=== PATIENT | male | born 1955 | race African-American/Black ===

== ENCOUNTER 2019-12-09 08:46 | Emergency (ER) | payer OTHER ==
[~2019-12-09] VITALS: Ht 180.3 cm; Wt 114.0 kg
--- NOTE | 2019-12-09 09:01 | PHYS DOC ---
Past Medical History Past Medical History: Diabetes-Type II Past Surgical History: Other (partial left foot amputation) Additional Information: nonSmoker Alcohol Use: None Adult General Chief Complaint Chief Complaint: HYPERGLYCEMIA HPI HPI Patient is a 64 year old male with a past history of uncontrolled diabetes pr esents via EMS with hyperglycemia. Per EMS. [place] report patient was altered with slurred speech. Per EMS, blood sugar was 42 patient was given normal saline in route, and recheck blood sugar was 402. Currently in the ED patient reports that he is not having any symptoms and feels good. Denies abdominal pain, nausea, vomiting, diarrhea, changes in vision. He states that he does not remember being symptomatic and does not remember being picked up by EMS. Patient states that she does not take any medication for his diabetes and has not for the past couple of years and does not check his blood sugars at home. Patient states his last hospitalization for his diabetes was multiple years ago. Review of Systems Review of Systems Constitutional: Denies fever or chills Eyes: Denies redness or eye pain HENT: Denies nasal congestion or sore throat Respiratory: Denies cough or shortness of breath Cardiovascular: Denies chest pain or palpitations GI: Denies abdominal pain, nausea, or vomiting : Denies dysuria or hematuria Musculoskeletal: Denies back pain or joint pain Integument: Denies rash or skin lesions Neurologic: Denies headache, focal weakness or sensory changes Complete systems were reviewed and found to be within normal limits, except as documented in this note. Current Medications Current Medications Current Medications Medications (Trade) Dose Ordered Sig/Jackson Start Time Stop Time Status Last Admin Dose Admin Sodium Chloride 1,000 ml @ 1,000 mls/hr 1X ONCE 12/09/19 09:00 12/09/19 09:59 DC 12/09/19 09:45 1,000 MLS/HR Allergies Allergies Allergies Coded Allergies Type Severity Reaction Last Updated Verified No Known Drug Allergies 12/09/19 No Physical Exam Physical Exam Constitutional: Well developed, well nourished, no acute distress, non-toxic appearance HENT: Normocephalic, atraumatic, oropharynx moist Eyes: PERRL, EOMI, conjunctiva normal, no discharge Neck: Normal range of motion, no tenderness, supple Cardiovascular: Heart rate normal, regular rhythm Lungs & Thorax: Bilateral breath sounds clear to auscultation, no wheezing Abdomen: Soft, no tenderness Skin: Warm, dry, no erythema, no rash Back: No tenderness, no CVA tenderness Extremities: No tenderness, ROM intact, no edema Neurologic: Alert and oriented X 3, normal motor function, normal sensory fun ction, no focal deficits noted Psychologic: Affect normal, judgement normal, mood normal Current Patient Data Vital Signs Vital Signs Date Time Temp Pulse Resp B/P (MAP) Pulse Ox O2 Delivery O2 Flow Rate FiO2 12/09/19 10:25 84 185/90 (121) 100 Room Air 12/09/19 08:46 97.4 17 97.4 Lab Values Laboratory Tests Test 12/09/19 09:45 12/09/19 10:00 White Blood Count 6.2 x10^3/uL (4.0-11.0) Red Blood Count 4.80 x10^6/uL (4.30-5.70) Hemoglobin 12.0 g/dL (13.0-17.5) L Hematocrit 36.9 % (39.0-53.0) L Mean Corpuscular Volume 77 fL (79-100) L Mean Corpuscular Hemoglobin 25 pg (25-35) Mean Corpuscular Hemoglobin Concent 32 g/dL (31-37) Red Cell Distribution Width 15.3 % (11.5-14.5) H Platelet Count 197 x10^3/uL (140-400) Neutrophils (%) (Auto) 70 % (31-73) Lymphocytes (%) (Auto) 21 % (24-48) L Monocytes (%) (Auto) 7 % (0-9) Eosinophils (%) (Auto) 2 % (0-3) Basophils (%) (Auto) 1 % (0-3) Neutrophils # (Auto) 4.3 x10^3/uL (1.8-7.7) Lymphocytes # (Auto) 1.3 x10^3/uL (1.0-4.8) Monocytes # (Auto) 0.4 x10^3/uL (0.0-1.1) Eosinophils # (Auto) 0.1 x10^3/uL (0.0-0.7) Basophils # (Auto) 0.1 x10^3/uL (0.0-0.2) Sodium Level 138 mmol/L (136-145) Potassium Level 4.5 mmol/L (3.5-5.1) Chloride Level 104 mmol/L (98-107) Carbon Dioxide Level 23 mmol/L (21-32) Anion Gap 11 (6-14) Blood Urea Nitrogen 50 mg/dL (8-26) H Creatinine 3.6 mg/dL (0.7-1.3) H Estimated GFR (Cockcroft-Gault) 17.2 BUN/Creatinine Ratio 14 (6-20) Glucose Level 304 mg/dL (70-99) H Calcium Level 8.6 mg/dL (8.5-10.1) Magnesium Level 1.8 mg/dL (1.8-2.4) Total Bilirubin 0.4 mg/dL (0.2-1.0) Aspartate Amino Transferase (AST) 17 U/L (15-37) Alanine Aminotransferase (ALT) 12 U/L (16-63) L Alkaline Phosphatase 69 U/L (46-116) Ammonia < 10 mcmol/L (11-34) L Creatine Kinase 303 U/L (39-308) Creatine Kinase MB (Mass) 3.4 ng/mL (0.0-3.6) Creatine Kinase MB Relative Index 1.1 % (0-4) Troponin I Quantitative < 0.017 ng/mL (0.000-0.055) Total Protein 7.3 g/dL (6.4-8.2) Albumin 3.1 g/dL (3.4-5.0) L Albumin/Globulin Ratio 0.7 (1.0-1.7) L Ethyl Alcohol Level < 10 mg/dL (0-10) Acetone Level Neg (NEG) Urine Collection Type U cath Urine Color Yellow Urine Clarity Clear Urine pH 5.5 Urine Specific [place] 1.020 Urine Protein >=300 mg/dL (NEG-TRACE) Urine Glucose (UA) >=1000 mg/dL (NEG) Urine Ketones (Stick) Negative mg/dL (NEG) Urine Blood Small (NEG) Urine Nitrite Negative (NEG) Urine Bilirubin Negative (NEG) Urine Urobilinogen Dipstick 0.2 mg/dL (0.2 mg/dL) Urine Leukocyte Esterase Negative (NEG) Urine RBC Rare /HPF (0-2) Urine WBC 1-4 /HPF (0-4) Urine Transitional Epithelial Cells Occ /LPF Urine Amorphous Sediment Present /HPF Urine Bacteria 0 /HPF (0-FEW) Urine Opiates Screen Neg (NEG) Urine Methadone Screen Neg (NEG) Urine Barbiturates Neg (NEG) Urine Phencyclidine Screen Neg (NEG) Urine Amphetamine/Methamphetamine Neg (NEG) Urine Benzodiazepines Screen Neg (NEG) Urine Cocaine Screen Neg (NEG) Urine Cannabinoids Screen Neg (NEG) Urine Ethyl Alcohol Neg (NEG) Laboratory Tests 12/09/19 09:45 Laboratory Tests 12/09/19 09:45 EKG EKG [] Radiology/Procedures Radiology/Procedures [] Impressions: PROCEDURE: CHEST PA & LATERAL CHEST PA LATERAL History: Altered mental status Comparison: None. Findings: Frontal and lateral views of the chest were obtained. The cardiomediastinal silhouette is normal. Pulmonary vasculature is normal. The lungs are clear. No pleural effusion or pneumothorax is seen. There is no acute bone abnormality. Moderately advanced right acromioclavicular joint degenerative changes present. Left acromioclavicular degenerative changes of a lesser degree. IMPRESSION: No acute cardiopulmonary process. Electronically signed by: Terry Alicea MD (12/09/2019 9:19 AM) [facility] Course & Med Decision Making Course & Med Decision Making Pertinent Labs and Imaging studies reviewed. (See chart for details) Patient with a history of uncontrolled diabetes presents via EMS to the ED for hyperglycemia and altered mentation. Per EMS, but sugar was 482 in route. In the ED patient is alert and oriented 3, neurologic exam is benign. Patient denies any symptoms. Imaging unremarkable. Labs reveal blood sugar 300 with normal electrolytes. Extensive discussion with patient and friend in room regarding elevated BUN/creatinine and need for follow-up with cardiology nurse PCP to manage diabetes. Patient states that he currently feels good in the ER and agrees with plan. Dragon Disclaimer Dragon Disclaimer This electronic medical record was generated, in whole or in part, using a voice recognition dictation system. Departure Departure Impression: Primary Impression: Hyperglycemia Additional Impression: Renal failure Disposition: HOME, SELF-CARE Condition: STABLE Referrals: IRLANDA VANG MD Patient Instructions: Chronic Renal Insufficiency, Hyperglycemia, [id number] Additional Instructions: Please make an appointment to be seen by a family physician or clinic. Also please follow with a kidney doctor (referral above) Problem Qualifiers Additional Impression: Renal failure Renal failure chronicity: unspecified chronicity Qualified Codes: N19 - Unspecified kidney failure DEUCE AMARO DO Dec 09, 2019 09:01
--- NOTE | 2019-12-09 09:21 | RAD ---
CHEST PA LATERAL History: Altered mental status Comparison: None. Findings: Frontal and lateral views of the chest were obtained. The cardiomediastinal silhouette is normal. Pulmonary vasculature is normal. The lungs are clear. No pleural effusion or pneumothorax is seen. There is no acute bone abnormality. Moderately advanced right acromioclavicular joint degenerative changes present. Left acromioclavicular degenerative changes of a lesser degree. IMPRESSION: No acute cardiopulmonary process. Electronically signed by: Terry Alicea MD (12/09/2019 9:19 AM) [facility]
[2019-12-09] MEDS: IV NORMAL SALINE 1000ML BAG 1,000 ML IV ONE (09:45)
[2019-12-09 10:02] LABS: BASO # 0.1 x10^3/uL (0.0-0.2); BASO % 1 % (0-3); EOS # 0.1 x10^3/uL (0.0-0.7); EOS % 2 % (0-3); HEMATOCRIT 36.9 % (39.0-53.0); LYMPH # 1.3 x10^3/uL (1.0-4.8); LYMPH % 21 % (24-48); MEAN CORPUSCULAR HEMOGLOBIN 25 pg (25-35); MEAN CORPUSCULAR HGB CONC 32 g/dL (31-37); MEAN CORPUSCULAR VOLUME 77 fL (79-100); MONO # 0.4 x10^3/uL (0.0-1.1); MONO % 7 % (0-9); NEUT # 4.3 x10^3/uL (1.8-7.7); NEUT % 70 % (31-73); PLATELET COUNT 197 x10^3/uL (140-400); RED CELL DISTRIBUTION WIDTH 15.3 % (11.5-14.5); WHITE BLOOD COUNT 6.2 x10^3/uL (4.0-11.0)
[2019-12-09 10:05] LABS: CALCIUM 8.6 mg/dL (8.5-10.1); CREATININE 3.6 mg/dL (0.7-1.3); GFR 17.2; POTASSIUM 4.5 mmol/L (3.5-5.1)
[2019-12-09 10:08] LABS: BILIRUBIN,URINE NEGATIVE (NEG); CLARITY,URINE CLEAR; COLOR,URINE YELLOW; NITRITE,URINE NEGATIVE (NEG); PH,URINE 5.5; PROTEIN,URINE >=300 mg/dL (NEG-TRACE); UROBILINOGEN,URINE 0.2 mg/dL (0.2 mg/dL)
[2019-12-09 10:10] LABS: ALBUMIN 3.1 g/dL (3.4-5.0); ALBUMIN/GLOBULIN RATIO 0.7 (1.0-1.7); MAGNESIUM 1.8 mg/dL (1.8-2.4); TOTAL BILIRUBIN 0.4 mg/dL (0.2-1.0); TOTAL PROTEIN 7.3 g/dL (6.4-8.2)
[2019-12-09 10:14] LABS: AMPHETAMINE/METHAMPHETAMINE NEG (NEG); BARBITURATES NEG (NEG); BENZODIAZEPINES NEG (NEG); CANNABINOIDS NEG (NEG); COCAINE NEG (NEG); METHADONE NEG (NEG); OPIATES NEG (NEG); PHENCYCLIDINE NEG (NEG)
[2019-12-09 10:18] LABS: AMORPHOUS SEDIMENT,UR PRESENT /HPF; BACTERIA,URINE 0 /HPF (0-FEW); RBC,URINE RARE /HPF (0-2)
[2019-12-09 11:25] VITALS: BP 235/97
== END 2019-12-09 11:45 | disposition home or self-care (01) ==
LOC: ER 08:46
DX: E11.65 Type 2 diabetes mellitus with hyperglycemia (principal); N19 Unspecified kidney failure; Z98.890 Other specified postprocedural states
CPT/HCPCS: 36415; 71046; 80053; 80307; 81001; 82010; 82140; 82553; 83735; 84484; 85025; 96360; 99285; G0480; J7030